=== PATIENT | female | born 2000 | race Caucasian/White ===

== ENCOUNTER 2018-11-16 23:35 | Inpatient (IN) ==
[2018-11-17] MEDS ORDERED: MAGNESIUM SULF RIDER 4 GM in PREMIX 1 EACH IV PRN (00:27)
[2018-11-17] MEDS ORDERED: MAGNESIUM SULF RIDER 2 GM in PREMIX 1 EACH IV PRN (00:27)
[2018-11-17] MEDS: ALBUTEROL 2.5 MG/3 ML NEB RESP TX SCH ×6 (00:30→11:12)
[2018-11-17 01:12] LABS: Basophils % 0.1 % (0.0-0.8); Eosinophils % 0.1 % (0.00-10.9); Hematocrit 37.6 VOL% (35.7-47.0); Hemoglobin 12.4 GM/DL (12.0-16.0); Immature Granulocytes % 1.2 %; Immature Granulocytes Absolute 0.19 #; Lymphocytes # 0.7 10*3/uL (1.4-4.0); Lymphocytes % 4.3 % (21.3-54.2); Mean Corpuscular Hemoglobin 28 PG (27-34); Mean Corpuscular Volume 84.9 FL (87-102); Monocytes # 0.1 10*3/uL (0.11-0.8); Monocytes % 0.7 % (1.7-12.7); Neutrophils # 15.4 10*3/uL (1.4-7.4); Neutrophils % 93.6 % (38.7-73.9); Platelet Count 236 T/CUMM (130-400); Red Blood Count 4.43 MC/CUMM (3.8-5.5); Red Cell Distribution Width 13.4 % (9.3-17.3); White Blood Count 16.4 T/CUMM (4-12)
[2018-11-17 01:41] LABS: Alanine Aminotransferase 19 U/L (13-56); Alkaline Phosphatase 121 U/L (45-117); Aspartate Amino Transferase 12 U/L (0-37); Bilirubin,Total < 0.39 MG/DL (0.2-1.0); Blood Urea Nitrogen 3 MG/DL (7-18); Glucose 148 MG/DL (74-106); Osmolality,Calculated 278.4 MOS/KG (273-304); Potassium 3.7 MMOL/L (3.5-5.1); Sodium 140 MMOL/L (136-145); Total Protein 7.1 G/DL (6.4-8.3)
[2018-11-17 02:29] LABS: Lymphocytes 3 % (20-55); Platelet Estimate Normal; Polychromasia Few; Segmented Neutrophils 97 % (50-85); Total Cells Counted 100
[2018-11-17] MEDS ORDERED: BUDESONIDE 0.5 MG/2 ML NEB RESP TX SCH (04:00)
[2018-11-17] MEDS: predniSONE 20 MG TABLET PO SCH ×2 (05:23→10:06)
[2018-11-17 05:35] LABS: Basophils % 0.1 % (0.0-0.8); Eosinophils % 0.1 % (0.00-10.9); Hematocrit 38.8 VOL% (35.7-47.0); Hemoglobin 12.7 GM/DL (12.0-16.0); Immature Granulocytes % 0.3 %; Immature Granulocytes Absolute 0.04 #; Lymphocytes # 0.7 10*3/uL (1.4-4.0); Lymphocytes % 5.9 % (21.3-54.2); Mean Corpuscular HGB Conc 32.7 GM/DL (32-36); Mean Corpuscular Hemoglobin 28 PG (27-34); Mean Corpuscular Volume 85.8 FL (87-102); Mean Platelet Volume 12.6 FL (9.6-12.0); Monocytes # 0.1 10*3/uL (0.11-0.8); Monocytes % 1.1 % (1.7-12.7); Neutrophils # 11.3 10*3/uL (1.4-7.4); Neutrophils % 92.5 % (38.7-73.9); Platelet Count 227 T/CUMM (130-400); Red Blood Count 4.52 MC/CUMM (3.8-5.5); Red Cell Distribution Width 13.7 % (9.3-17.3); White Blood Count 12.3 T/CUMM (4-12)
[2018-11-17 05:59] LABS: Hypochromasia 1+; Lymphocytes 8 % (20-55); Platelet Estimate Adequate; Segmented Neutrophils 92 % (50-85); Total Cells Counted 100
[2018-11-17 06:01] LABS: Calcium 9.1 MG/DL (8.5-10.1); Osmolality,Calculated 273.7 MOS/KG (273-304); Potassium 3.8 MMOL/L (3.5-5.1)
[2018-11-17] MEDS: LORATADINE 10 MG TABLET PO SCH (10:06)
[2018-11-17] MEDS: MULTIVITAMIN (PRENATAL) TABLET PO SCH (10:06)
[2018-11-17] MEDS ORDERED: ALBUTEROL 1.25 MG/3 ML NEB RESP TX PRN (11:42)
[2018-11-17] MEDS ORDERED: BUDESONIDE 0.25 MG/2 ML NEB RESP TX SCH (14:00)
[2018-11-17] MEDS: methylPREDNISolone SOD SUC 125 MG/2 ML VIAL IV SCH ×2 (14:14→21:56)
[2018-11-17] MEDS: LACTATED RINGERS 1,000 ML IV SCH (14:14)
[2018-11-17] MEDS: FLUTICASONE 50 MCG NASAL SPRAY 16 GM BOTTLE BOTH NARES SCH ×2 (14:14→21:05)
[2018-11-17] MEDS ORDERED: AZITHROMYCIN INJ 500 MG in SODIUM CHLORIDE 0.9% 250 ML IV SCH (15:00)
[2018-11-17] MEDS: LEVALBUTEROL 1.25 MG/3 ML NEB RESP TX SCH (19:00)
[2018-11-17] MEDS ORDERED: ALBUTEROL 1.25 MG/3 ML NEB RESP TX SCH (19:00)
[2018-11-17] MEDS: MONTELUKAST 10 MG TABLET PO SCH (21:05)
[2018-11-18] MEDS: LEVALBUTEROL 1.25 MG/3 ML NEB RESP TX SCH ×4 (00:50→18:51)
[2018-11-18] MEDS: LACTATED RINGERS 1,000 ML IV SCH (02:19)
[2018-11-18] MEDS: methylPREDNISolone SOD SUC 125 MG/2 ML VIAL IV SCH (06:12)
[2018-11-18 08:46] LABS: Basophils % 0.2 % (0.0-0.8); Hematocrit 36.5 VOL% (35.7-47.0); Hemoglobin 11.9 GM/DL (12.0-16.0); Immature Granulocytes % 1.1 %; Immature Granulocytes Absolute 0.21 #; Lymphocytes # 1.2 10*3/uL (1.4-4.0); Lymphocytes % 6.1 % (21.3-54.2); Mean Corpuscular HGB Conc 32.6 GM/DL (32-36); Mean Corpuscular Hemoglobin 28 PG (27-34); Mean Corpuscular Volume 86.5 FL (87-102); Monocytes # 0.5 10*3/uL (0.11-0.8); Monocytes % 2.4 % (1.7-12.7); Neutrophils # 17.6 10*3/uL (1.4-7.4); Neutrophils % 90.2 % (38.7-73.9); Platelet Count 235 T/CUMM (130-400); Red Blood Count 4.22 MC/CUMM (3.8-5.5); Red Cell Distribution Width 14.4 % (9.3-17.3); White Blood Count 19.5 T/CUMM (4-12)
[2018-11-18 09:03] LABS: Calcium 8.6 MG/DL (8.5-10.1); Osmolality,Calculated 274.5 MOS/KG (273-304); Potassium 3.5 MMOL/L (3.5-5.1)
[2018-11-18] MEDS: guaiFENesin/CODEINE 5 ML LIQUID PO PRN ×3 (09:45→21:05)
[2018-11-18] MEDS: FLUTICASONE 50 MCG NASAL SPRAY 16 GM BOTTLE BOTH NARES SCH ×2 (09:45→21:03)
[2018-11-18] MEDS: MULTIVITAMIN (PRENATAL) TABLET PO SCH (09:45)
[2018-11-18] MEDS: LORATADINE 10 MG TABLET PO SCH (09:45)
[2018-11-18] MEDS ORDERED: BUDESONIDE 0.25 MG/2 ML NEB RESP TX SCH (10:00)
[2018-11-18] MEDS: AZITHROMYCIN 250 MG TABLET PO SCH (12:55)
[2018-11-18] MEDS: BUDESONIDE/FORMOTEROL 160-4.5 INHALER 6 GM INH SCH ×2 (12:55→21:02)
[2018-11-18] MEDS: MONTELUKAST 10 MG TABLET PO SCH (21:03)
[2018-11-19] MEDS: LEVALBUTEROL 1.25 MG/3 ML NEB RESP TX SCH ×4 (00:26→19:48)
[2018-11-19 05:31] LABS: Basophils % 0.1 % (0.0-0.8); Eosinophils % 0.1 % (0.00-10.9); Hematocrit 32.9 VOL% (35.7-47.0); Hemoglobin 10.7 GM/DL (12.0-16.0); Immature Granulocytes % 1.4 %; Lymphocytes # 3.3 10*3/uL (1.4-4.0); Lymphocytes % 22.5 % (21.3-54.2); Mean Corpuscular HGB Conc 32.5 GM/DL (32-36); Mean Corpuscular Hemoglobin 28 PG (27-34); Mean Corpuscular Volume 86.6 FL (87-102); Mean Platelet Volume 12.7 FL (9.6-12.0); Monocytes # 0.8 10*3/uL (0.11-0.8); Monocytes % 5.1 % (1.7-12.7); Neutrophils # 10.5 10*3/uL (1.4-7.4); Neutrophils % 70.8 % (38.7-73.9); Platelet Count 220 T/CUMM (130-400); Red Cell Distribution Width 14.4 % (9.3-17.3); White Blood Count 14.8 T/CUMM (4-12)
[2018-11-19 05:46] LABS: Osmolality,Calculated 278.3 MOS/KG (273-304); Potassium 3.1 MMOL/L (3.5-5.1)
[2018-11-19] MEDS: ACETAMINOPHEN 325 MG TABLET PO PRN ×2 (06:24→09:06)
[2018-11-19] MEDS: MULTIVITAMIN (PRENATAL) TABLET PO SCH (09:06)
[2018-11-19] MEDS: guaiFENesin/CODEINE 5 ML LIQUID PO PRN ×3 (09:07→20:38)
[2018-11-19] MEDS: LORATADINE 10 MG TABLET PO SCH (09:08)
[2018-11-19] MEDS: FLUTICASONE 50 MCG NASAL SPRAY 16 GM BOTTLE BOTH NARES SCH ×2 (09:08→20:38)
[2018-11-19] MEDS: BUDESONIDE/FORMOTEROL 160-4.5 INHALER 6 GM INH SCH ×2 (09:08→20:38)
[2018-11-19] MEDS: AZITHROMYCIN 250 MG TABLET PO SCH (09:09)
[2018-11-19] MEDS: POTASSIUM CHLORIDE 20 MEQ TABLET PO PRN ×4 (09:31→17:00)
[2018-11-20] MEDS: LEVALBUTEROL 1.25 MG/3 ML NEB RESP TX SCH ×4 (01:09→19:19)
[2018-11-20] MEDS: ACETAMINOPHEN 325 MG TABLET PO PRN ×3 (07:03→20:40)
[2018-11-20] MEDS: AZITHROMYCIN 250 MG TABLET PO SCH (08:28)
[2018-11-20] MEDS: MULTIVITAMIN (PRENATAL) TABLET PO SCH (08:28)
[2018-11-20] MEDS: LORATADINE 10 MG TABLET PO SCH (08:28)
[2018-11-20] MEDS: BUDESONIDE/FORMOTEROL 160-4.5 INHALER 6 GM INH SCH ×2 (08:29→20:17)
[2018-11-20] MEDS: FLUTICASONE 50 MCG NASAL SPRAY 16 GM BOTTLE BOTH NARES SCH ×2 (08:29→20:17)
[2018-11-21] MEDS: LEVALBUTEROL 1.25 MG/3 ML NEB RESP TX SCH ×2 (00:57→07:45)
[2018-11-21] MEDS: BUDESONIDE/FORMOTEROL 160-4.5 INHALER 6 GM INH SCH (08:57)
[2018-11-21] MEDS: LORATADINE 10 MG TABLET PO SCH (08:57)
[2018-11-21] MEDS: FLUTICASONE 50 MCG NASAL SPRAY 16 GM BOTTLE BOTH NARES SCH (08:57)
[2018-11-21] MEDS: MULTIVITAMIN (PRENATAL) TABLET PO SCH (08:57)
[2018-11-21] MEDS: AZITHROMYCIN 250 MG TABLET PO SCH (08:58)
[2018-11-21] MEDS ORDERED: predniSONE 20 MG TABLET PO SCH (10:00)
[2018-11-21 11:16] VITALS: BP 110/66
== END 2018-11-21 10:35 | disposition home or self-care (01) | DRG 832 ==
LOC: N.ED 23:35 → SUATTDRO 11-17 02:24 → N.5E 11-17 02:38
PROVIDERS: ADMIT Internal Medicine; ATTEND Emergency Medicine

== ENCOUNTER 2019-05-03 09:30 | Inpatient (IN) ==
[2019-05-03] MEDS ORDERED: ONDANSETRON 4 MG/2 ML VIAL IV PRN ×2 (10:19→14:46)
[2019-05-03] MEDS ORDERED: LACTATED RINGERS 1,000 ML IV SCH ×2 (10:30→15:00)
[2019-05-03 11:04] LABS: Basophils % 0.3 % (0.0-0.8); Eosinophils # 0.2 10*3/uL (0.0-0.87); Eosinophils % 1.2 % (0.00-10.9); Hematocrit 38.1 VOL% (35.7-47.0); Hemoglobin 12.7 GM/DL (12.0-16.0); Immature Granulocytes % 0.4 %; Immature Granulocytes Absolute 0.05 #; Lymphocytes # 2.3 10*3/uL (1.4-4.0); Lymphocytes % 17.6 % (21.3-54.2); Mean Corpuscular HGB Conc 33.3 GM/DL (32-36); Monocytes % 5.5 % (1.7-12.7); Platelet Count 246 T/CUMM (130-400); Red Blood Count 4.38 MC/CUMM (3.8-5.5); Red Cell Distribution Width 13.7 % (9.3-17.3)
[2019-05-03 11:36] LABS: Alanine Aminotransferase 19 U/L (13-56); Albumin 2.7 G/DL (3.4-5.0); Alkaline Phosphatase 175 U/L (45-117); Aspartate Amino Transferase 13 U/L (0-37); Bilirubin,Total < 0.39 MG/DL (0.2-1.0); Blood Urea Nitrogen 6 MG/DL (7-18); Calcium 8.9 MG/DL (8.5-10.1); Glucose 75 MG/DL (74-106); Osmolality,Calculated 273.5 MOS/KG (273-304); Total Protein 6.9 G/DL (6.4-8.3); Uric Acid 4.3 MG/DL (2.6-6.0)
[2019-05-03] MEDS ORDERED: CITRIC ACID/SODIUM CITRATE 30 ML UDCUP PO ONE (12:08)
[2019-05-03] MEDS ORDERED: FAMOTIDINE 20 MG/2 ML VIAL IV ONE (12:08)
[2019-05-03] MEDS ORDERED: CLINDAMYCIN INJ 900 MG in PREMIX 1 EACH IV ONE (12:08)
[2019-05-03] MEDS ORDERED: OXYTOCIN 10 UNIT/ML VIAL IM ONE (12:10)
[2019-05-03] MEDS ORDERED: OXYTOCIN/LR 30 UNIT/1,000 ML BAG IV ONE (12:10)
[2019-05-03] MEDS ORDERED: EPINEPHrine 1 MG/ML VIAL ONE (12:59)
[2019-05-03] MEDS ORDERED: BUPIVACAINE 0.5% 50 ML VIAL ONE (12:59)
[2019-05-03] MEDS ORDERED: DEXAMETHASONE 4 MG/1 ML VIAL ONE (12:59)
[2019-05-03] MEDS ORDERED: BUPIVACAINE SPINAL 0.75% 2 ML AMP SPINAL ONE (12:59)
[2019-05-03 14:40] LABS: Cord Venous Blood HCO3 22.3 MMOL/L; Cord Venous Blood PCO2 41.6 MMHG; Cord Venous Blood PO2 25.8
[2019-05-03 14:42] LABS: Cord Arterial Blood HCO3 20.1 MMOL/L
[2019-05-03] MEDS ORDERED: MAGNESIUM HYDROXIDE SUSP 30 ML UDCUP PO PRN (14:46)
[2019-05-03] MEDS ORDERED: IBUPROFEN 800 MG TABLET PO PRN (14:46)
[2019-05-03] MEDS ORDERED: ACETAMINOPHEN 325 MG TABLET PO PRN (14:46)
[2019-05-03] MEDS ORDERED: OXYTOCIN/LR 20 UNIT/1,000 ML BAG IV ONE (14:46)
[2019-05-03] MEDS ORDERED: RHO(D) IMMUNE GLOBULIN 300 MCG SYRINGE IM ONE (14:46)
[2019-05-03] MEDS ORDERED: SIMETHICONE CHEW 80 MG TABLET PO PRN (14:46)
[2019-05-03] MEDS ORDERED: ceFAZolin 1,000 MG in SYRINGE 1 EACH IV SCH (15:00)
[2019-05-03] MEDS ORDERED: MORPHINE 10 MG/10 ML VIAL ONE (15:14)
[2019-05-03] MEDS ORDERED: ONDANSETRON 4 MG/2 ML VIAL ONE (15:15)
[2019-05-03] MEDS ORDERED: PHENYLEPHRINE 1 MG/10 ML SYRINGE IV ONE (15:15)
[2019-05-03] MEDS ORDERED: LACTATED RINGERS 1,000 ML IV ONE (15:15)
[2019-05-03 15:20] LABS: Apearance,Urine CLEAR (Clear); Bacteria,Urine Occasional /HPF (Few); Bilirubin,Urine Negative (Negative); Blood, Urine Negative (Negative); Glucose,Urine (UA) Negative (Negative); Ketones,Urine Negative (Negative); Mucus,Urine Occasional /LPF (Occasional); Nitrite,Urine Negative (Negative); Protein,Urine Negative; RBC,Urine 1 /HPF (0-4); Squamous Epithelial Cell,Urine Occasional /HPF (0-10); Urine Color Yellow (Yellow); Urine Specific Gravity 1.015 (1.001-1.035); Urine Urobilinogen < 2.0 EU/DL (0.2-1.0); WBC,Urine <1 /HPF (0-6)
[2019-05-03] MEDS ORDERED: diphenhydrAMINE CAP 25 MG CAPSULE PO PRN (20:25)
[2019-05-03] MEDS: DOCUSATE SODIUM 100 MG CAPSULE PO SCH (20:45)
[2019-05-03] MEDS: CLINDAMYCIN INJ 900 MG in PREMIX 1 EACH IV SCH (21:44)
[2019-05-04] MEDS ORDERED: hydrOXYzine HCL 25 MG/1 ML VIAL IM PRN (02:00)
[2019-05-04 04:53] LABS: Basophils # 0.1 10*3/uL (0.0-0.2); Basophils % 0.2 % (0.0-0.8); Hematocrit 34.3 VOL% (35.7-47.0); Hemoglobin 11.1 GM/DL (12.0-16.0); Immature Granulocytes % 0.7 %; Immature Granulocytes Absolute 0.14 #; Lymphocytes # 1.9 10*3/uL (1.4-4.0); Lymphocytes % 9.2 % (21.3-54.2); Mean Corpuscular HGB Conc 32.4 GM/DL (32-36); Mean Corpuscular Volume 87.7 FL (87-102); Mean Platelet Volume 13.3 FL (9.6-12.0); Monocytes % 5.8 % (1.7-12.7); Neutrophils % 84.1 % (38.7-73.9); Platelet Count 228 T/CUMM (130-400); Red Blood Count 3.91 MC/CUMM (3.8-5.5); Red Cell Distribution Width 13.5 % (9.3-17.3); White Blood Count 20.9 T/CUMM (4-12)
[2019-05-04] MEDS: CLINDAMYCIN INJ 900 MG in PREMIX 1 EACH IV SCH (05:22)
[2019-05-04 05:53] LABS: Lymphocytes 3 % (20-55); Segmented Neutrophils 89 % (50-85); Total Cells Counted 100
[2019-05-04 05:54] LABS: Platelet Estimate Normal; Polychromasia Slight
[2019-05-04] MEDS: MULTIVITAMIN (PRENATAL) TABLET PO SCH (09:16)
[2019-05-04] MEDS: METOCLOPRAMIDE 10 MG TABLET PO SCH ×2 (09:16→17:25)
[2019-05-04] MEDS: DOCUSATE SODIUM 100 MG CAPSULE PO SCH ×2 (09:16→21:05)
[2019-05-04] MEDS ORDERED: FUROSEMIDE 40 MG/4 ML VIAL IV ONE (09:52)
[2019-05-04] MEDS: ALBUTEROL 2.5 MG/3 ML NEB RESP TX PRN ×2 (19:50)
[2019-05-04] MEDS: guaiFENesin/CODEINE 5 ML LIQUID PO PRN (21:05)
[2019-05-04] MEDS: methylPREDNISolone SOD SUC 40 MG/1 ML VIAL IV SCH (21:05)
[2019-05-05] MEDS: ALBUTEROL 2.5 MG/3 ML NEB RESP TX SCH ×3 (00:42→12:14)
[2019-05-05] MEDS: guaiFENesin/CODEINE 5 ML LIQUID PO PRN (02:34)
[2019-05-05] MEDS: methylPREDNISolone SOD SUC 40 MG/1 ML VIAL IV SCH (05:06)
[2019-05-05 07:14] VITALS: BP 108/67
[2019-05-05] MEDS: MULTIVITAMIN (PRENATAL) TABLET PO SCH (08:27)
[2019-05-05] MEDS: DOCUSATE SODIUM 100 MG CAPSULE PO SCH (08:28)
[2019-05-05] MEDS: METOCLOPRAMIDE 10 MG TABLET PO SCH (08:30)
[2019-05-05] MEDS ORDERED: DIPH/TET/ACEL PERT BOOSTER VACCINE 0.5 ML VIAL IM ONE ×2 (10:35→10:36)
== END 2019-05-05 12:45 | disposition home or self-care (01) | DRG 788 ==
LOC: N.LD 10:00 → N.OB 20:22
PROVIDERS: ADMIT Obstetrics & Gynecology; ATTEND Obstetrics & Gynecology
PROC: LDCSECT (ICD-10-PCS; 2019-05-03 09:45)

== ENCOUNTER 2021-07-06 06:10 | Inpatient (IN) ==
[2021-07-06] MEDS ORDERED: CITRIC ACID/SODIUM CITRATE 30 ML UDCUP PO ONE (06:24)
[2021-07-06] MEDS ORDERED: CLINDAMYCIN INJ 900 MG/50 ML PREMIX IV ONE (06:24)
[2021-07-06] MEDS ORDERED: FAMOTIDINE 20 MG/2 ML VIAL IV ONE (06:24)
[2021-07-06] MEDS ORDERED: OXYTOCIN 10 UNIT/ML VIAL IM ONE (06:25)
[2021-07-06] MEDS ORDERED: OXYTOCIN/LR 30 UNIT/1,000 ML BAG IV ONE (06:25)
[2021-07-06 06:53] LABS: Basophils % 0.3 % (0.0-0.8); Eosinophils # 0.1 10*3/uL (0.0-0.87); Eosinophils % 0.9 % (0.00-10.9); Hematocrit 39.4 VOL% (35.7-47.0); Hemoglobin 13.5 GM/DL (12.0-16.0); Immature Granulocytes % 0.5 %; Immature Granulocytes Absolute 0.06 #; Lymphocytes # 2.5 10*3/uL (1.4-4.0); Lymphocytes % 21.4 % (21.3-54.2); Mean Corpuscular HGB Conc 34.3 GM/DL (32-36); Mean Corpuscular Volume 89.7 FL (87-102); Mean Platelet Volume 12.9 FL (9.6-12.0); Monocytes % 5.8 % (1.7-12.7); Neutrophils % 71.1 % (38.7-73.9); Platelet Count 184 T/CUMM (130-400); Red Blood Count 4.39 MC/CUMM (3.8-5.5); Red Cell Distribution Width 14.6 % (9.3-17.3); White Blood Count 11.7 T/CUMM (4-12)
[2021-07-06 07:14] LABS: Alanine Aminotransferase 14 U/L (13-56); Albumin 2.3 G/DL (3.4-5.0); Alkaline Phosphatase 167 U/L (45-117); Aspartate Amino Transferase 14 U/L (0-37); Bilirubin,Total < 0.39 MG/DL (0.20-1.00); Blood Urea Nitrogen 7 MG/DL (7-18); Calcium 8.9 MG/DL (8.5-10.1); Carbon Dioxide 21 MMOL/L (21-32); Estimated Glom Filtration Rate 135 ML/MIN; Glucose 93 MG/DL (74-106); Osmolality,Calculated 276.4 MOS/KG (273-304); Potassium 3.8 MMOL/L (3.5-5.1); Sodium 140 MMOL/L (136-145); Total Protein 6.1 G/DL (6.4-8.2)
[2021-07-06] MEDS: LACTATED RINGERS 1,000 ML IV SCH ×2 (07:25→08:34)
[2021-07-06] MEDS ORDERED: ONDANSETRON 4 MG/2 ML VIAL ONE (08:42)
[2021-07-06] MEDS ORDERED: BUPIVACAINE SPINAL 0.75% 2 ML AMP SPINAL ONE (08:42)
[2021-07-06] MEDS ORDERED: DEXAMETHASONE 4 MG/1 ML VIAL ONE (08:42)
[2021-07-06] MEDS ORDERED: ACETAMINOPHEN INJ 1,000 MG/100 ML VIAL IV ONE (08:42)
[2021-07-06] MEDS ORDERED: KETOROLAC 30 MG/1 ML VIAL ONE (08:42)
[2021-07-06] MEDS ORDERED: PHENYLEPHRINE 1 MG/10 ML SYRINGE IV ONE (10:48)
[2021-07-06] MEDS ORDERED: LACTATED RINGERS 1,000 ML IV ONE (10:53)
[2021-07-06] MEDS ORDERED: ePHEDrine 50 MG/ML VIAL ONE (10:53)
[2021-07-06 11:24] LABS: Cord Venous Blood HCO3 22.7 MMOL/L; Cord Venous Blood PCO2 39.1 MMHG; Cord Venous Blood PO2 29.6 MMHG
[2021-07-06] MEDS ORDERED: ALBUTEROL INHALER 18 GM INH ONE (11:26)
[2021-07-06 11:27] LABS: Cord Arterial Blood HCO3 20.7 MMOL/L
[2021-07-06 11:54] LABS: Bacteria,Urine Occasional /HPF (Few); Bilirubin,Urine Negative (Negative); Blood, Urine Negative (Negative); Glucose,Urine (UA) Negative (Negative); Ketones,Urine Negative (Negative); Mucus,Urine Occasional /LPF (Occasional); Nitrite,Urine Negative (Negative); Protein,Urine Negative; Squamous Epithelial Cell,Urine Occasional /HPF (0-10); Urine Appearance CLEAR (Clear); Urine Color Yellow (Yellow); Urine Specific Gravity 1.014 (1.001-1.035); Urine Urobilinogen < 2.0 EU/DL (0.2-1.0)
[2021-07-06] MEDS ORDERED: ONDANSETRON 4 MG/2 ML VIAL IV PRN (11:54)
[2021-07-06] MEDS ORDERED: OXYTOCIN/LR 20 UNIT/1,000 ML BAG IV ONE (11:54)
[2021-07-06] MEDS ORDERED: ACETAMINOPHEN 325 MG TABLET PO PRN (11:54)
[2021-07-06] MEDS ORDERED: SIMETHICONE CHEW 80 MG TABLET PO PRN (11:54)
[2021-07-06] MEDS ORDERED: MAGNESIUM HYDROXIDE SUSP 30 ML UDCUP PO PRN (11:54)
[2021-07-06] MEDS ORDERED: RHO(D) IMMUNE GLOBULIN 300 MCG SYRINGE IM ONE (11:54)
[2021-07-06] MEDS ORDERED: LACTATED RINGERS 1,000 ML IV SCH (12:00)
[2021-07-06] MEDS ORDERED: diphenhydrAMINE 50 MG/1 ML VIAL ONE (13:34)
[2021-07-06] MEDS ORDERED: diphenhydrAMINE 50 MG/1 ML VIAL IV PRN (13:35)
[2021-07-06] MEDS: LEVOFLOXACIN INJ 500 MG/100 ML PREMIX IV SCH (14:45)
[2021-07-06] MEDS: KETOROLAC 30 MG/1 ML VIAL IV SCH ×2 (16:43→23:28)
[2021-07-06] MEDS: ACETAMINOPHEN 500 MG TABLET PO SCH ×3 (16:43→23:33)
[2021-07-06] MEDS: CLINDAMYCIN INJ 900 MG/50 ML PREMIX IV SCH (18:33)
[2021-07-06 19:34] LABS: Basophils % 0.1 % (0.0-0.8); Hematocrit 34.2 VOL% (35.7-47.0); Hemoglobin 11.3 GM/DL (12.0-16.0); Immature Granulocytes % 0.6 %; Immature Granulocytes Absolute 0.09 #; Lymphocytes % 6.6 % (21.3-54.2); Mean Corpuscular Volume 88.6 FL (87-102); Mean Platelet Volume 13.2 FL (9.6-12.0); Monocytes % 2.4 % (1.7-12.7); Neutrophils % 90.3 % (38.7-73.9); Platelet Count 166 T/CUMM (130-400); Red Blood Count 3.86 MC/CUMM (3.8-5.5); Red Cell Distribution Width 14.1 % (9.3-17.3); White Blood Count 15.5 T/CUMM (4-12)
[2021-07-06] MEDS: DOCUSATE SODIUM 100 MG CAPSULE PO SCH (23:27)
[2021-07-07] MEDS: CLINDAMYCIN INJ 900 MG/50 ML PREMIX IV SCH (03:29)
[2021-07-07 05:00] LABS: Basophils % 0.1 % (0.0-0.8); Eosinophils % 0.1 % (0.00-10.9); Hemoglobin 10.3 GM/DL (12.0-16.0); Immature Granulocytes % 0.5 %; Immature Granulocytes Absolute 0.07 #; Lymphocytes # 2.3 10*3/uL (1.4-4.0); Lymphocytes % 16.1 % (21.3-54.2); Mean Corpuscular HGB Conc 34.3 GM/DL (32-36); Mean Platelet Volume 13.5 FL (9.6-12.0); Monocytes % 6.2 % (1.7-12.7); Platelet Count 161 T/CUMM (130-400); Red Blood Count 3.41 MC/CUMM (3.8-5.5); Red Cell Distribution Width 14.2 % (9.3-17.3); White Blood Count 13.9 T/CUMM (4-12)
[2021-07-07] MEDS: KETOROLAC 30 MG/1 ML VIAL IV SCH (05:19)
[2021-07-07] MEDS ORDERED: INFLUENZA VIRUS VACCINE 0.5 ML SYRINGE IM ONE (07:19)
[2021-07-07] MEDS: MULTIVITAMIN (PRENATAL) TABLET PO SCH ×2 (07:40→09:16)
[2021-07-07] MEDS: DOCUSATE SODIUM 100 MG CAPSULE PO SCH ×3 (07:42→20:55)
[2021-07-07] MEDS ORDERED: METOCLOPRAMIDE 10 MG TABLET PO SCH (08:30)
[2021-07-07] MEDS: IBUPROFEN 800 MG TABLET PO PRN (15:18)
[2021-07-07] MEDS: LEVOFLOXACIN INJ 500 MG/100 ML PREMIX IV SCH (15:47)
[2021-07-08] MEDS: IBUPROFEN 800 MG TABLET PO PRN (04:17)
[2021-07-08 08:26] VITALS: BP 124/72
[2021-07-08] MEDS: MULTIVITAMIN (PRENATAL) TABLET PO SCH (09:24)
[2021-07-08] MEDS: DOCUSATE SODIUM 100 MG CAPSULE PO SCH (09:24)
== END 2021-07-08 11:55 | disposition home or self-care (01) | DRG 785 ==
LOC: N.LD 06:10 → N.OB 14:46
PROVIDERS: ADMIT Obstetrics & Gynecology; ATTEND Obstetrics & Gynecology